=== PATIENT | male | born 1945 | race Caucasian/White ===

== ENCOUNTER 2017-03-05 18:04 | Inpatient (IN) | payer MEDICAID ==
[~2017-03-05] VITALS: Ht 157.5 cm; Wt 50.0 kg
--- NOTE | 2017-03-05 18:22 | NUR ---
PT BIB FAMILY C/C COUGH BODY ACHES STS ITCHING ALL OVER BODY X [address] [place] AT BEDSIDE TO [facility]
--- NOTE | 2017-03-05 18:31 | NUR ---
XRAY AT BEDSIDE
--- NOTE | 2017-03-05 18:45 | NUR ---
PLEASE ENTER FULL NAMES OF REIMBURSEMENT SPEC/RN Patient data collected by (REIMBURSEMENT SPEC): Dinorah MURILLO Assessment reviewed and completed by (RN): Toyin VILLAVICENCIO
[2017-03-05 18:58] LABS: BASOPHIL % 0.3 % (0-2)
[2017-03-05 18:59] LABS: PLATELET COUNT 494 x10^3mcL (130-400); RED CELL DISTRIBUTION WIDTH 17.8 % (11.5-14.5)
--- NOTE | 2017-03-05 19:05 | NUR ---
REPORT RECEIVED FROM OSMIN MOORE TO ASSUME CARE.
[2017-03-05 19:06] LABS: CALCIUM 7.4 mg/dL (8.5-10.1); CARBON DIOXIDE 26.9 mmol/L (21-32); CHLORIDE SERUM 103 mmol/L (98-107); CREATININE SERUM 1.2 mg/dL (0.7-1.3); GLUCOSE SERUM 112 mg/dL (74-106); SODIUM SERUM 136 mmol/L (136-145)
[2017-03-05 19:11] LABS: ALBUMIN 2.2 g/dL (3.4-5.0); ALKALINE PHOSPHATASE 131 U/L (46-116); ALT/SGPT 30 U/L (16-63); AST/SGOT 30 U/L (15-37); BILIRUBIN TOTAL 0.4 mg/dL (0.20-1.00); TOTAL PROTEIN, SERUM 7.1 g/dL (6.4-8.2)
--- NOTE | 2017-03-05 19:23 | NUR ---
PT MEDICATED PER MD ORDER. SEE EMAR. IVF BOLUS STARTED. PT IS [id number], NOT ORIENTED TO TIME. RESP E/U AND NO S/S OF DISTRESS NOTED. AT BEDSIDE.
--- NOTE | 2017-03-05 19:51 | NUR ---
PT UNABLE TO GIVE URINE AT THIS TIME.
[2017-03-05 20:39] LABS: microscopic required? YES; urine erythrocyte 3+ (NEGATIVE)
--- NOTE | 2017-03-05 21:16 | NUR ---
PT MEDICATED PER MD ORDER. SEE EMAR.
--- NOTE | 2017-03-05 21:26 | NUR ---
RESP E/U AND NO S/S OF DISTRESS NOTED. PT RESTING ON GURNEY.
--- NOTE | 2017-03-05 22:40 | NUR ---
PT MEDICATED PER MD ORDER. SEE EMAR.
--- NOTE | 2017-03-05 22:46 | NUR ---
PT MEDICATED PER MD ORDER. SEE EMAR.
--- NOTE | 2017-03-05 22:46 | NUR ---
REPORT CALLED TO TRISTAN GARCIA TO ASSUME CARE.
--- NOTE | 2017-03-05 22:47 | NUR ---
PT TAKEN TO CT.
--- NOTE | 2017-03-05 23:24 | NUR ---
PT TRANSFERRED ON FULL CM TO TELE UNIT IN NO ACUTE DISTRESS WITH EMT. REPORT GIVEN TO TRISTAN GARCIA TO ASSUME CARE.
[2017-03-05 23:41] VITALS: BP 149/75
--- NOTE | 2017-03-05 23:51 | NUR ---
RECEIVED PATIENT FROM ED VIA [facility]ER[facility], PATIENT ALERT AND ORIENTED, FORGETFUL AT TIMES, FAMILY MEMBER AT BEDSIDE, TELE #22 ST, IV ACCESS TO LAC WNL, NO C/O PAIN AT THIS TIME, SCABS TO SKIN NOTED TO ALL EXTREMITES, ORIENTED PATIENT TO ROOM AND SURROUNDINGS, BED IN LOW POSITION, BED RAILS UP X 2, CALL LIGHT WITHIN REACH, WILL ENDORSE CARE TO PRIMARY NURSE RADHA HUDSON
--- NOTE | 2017-03-06 | NUR ---
PT RESTING IN BED W/ NIECE AT BEDSIDE. PT SCRATCHING VIGOROUSLY. IV INFUSING NS @ 126ML/HR TO LAC. NO REDNESS, SWELLING OR PAIN NOTED. RESP EVEN AND UNLABORED ON RA. PT DENIES SOB AT THIS TIME. BILAT UPPER/LOWER EXTREMITIES COVERED IN SMALL PATCHES, NONDRAINING. PT REPORTS THEY DO NOT BLEED, PT DENIES OTHER RESIDENTS LIVING IN HIS HOME HAVING SIMILAR RASH. NIECE REPORTS HAVING TAPERED HIM OFF ALCOHOL SINCE THE PAST WEEK AND A HALF, REPORTS GIVING HIM A SHOT OF ESTEPHANIE TO CALM THE SHAKING DOWN X2 DURING THE DAY. PT DENIES HX OF SEIZURE, PT REPORTS BEING HUNGRY, WILL PROVIDE SOFT FOOD D/T PT HAS NO TEETH ON TOP. CALL LIGHT WITHIN REACH, BED IN LOWEST POSITION, WILL CONTINUE TO MONITOR.
[2017-03-06 03:10] VITALS: BP 178/68
[2017-03-06 04:10] LABS: AMPHETAMINE QUAL UR NONE DETECTED (NEG <=1000)
--- NOTE | 2017-03-06 05:15 | NUR ---
PT RESTING WELL IN BED W/ NIECE AT BEDSIDE. PT GIVEN BENADRYL IVP 25MG TO REDUCE ITCHING. PT HAS DIFFUSE SCABS ALL OVER BILAT UE/LE OF UNKNOWN SOURCE. PT CALM AND COOPERATIVE W/ CARE, GENERALIZED WEAKNESS, IV SITE TO RT HAND 126ML/HR. NO REDNESS, SWELLING OR PAIN NOTED. CALL LIGHT WITHIN REACH, BED IN LOWEST POSITION, WILL CONTINUE TO MONITOR.
[2017-03-06 05:49] VITALS: BP 119/61
[2017-03-06 07:29] VITALS: Ht 157.5 cm; Wt 50.0 kg
--- NOTE | 2017-03-06 07:35 | NUR ---
RECEIVED PATIENT ASLEEP IN BED; AROUSABLE, CONFUSED. DIDN'T FOLLOW COMANDS WELL. IV INTACT AND INFUSING TO LFA; RH IV SL NOTED. TELE # 22 NOTED. ALL EXTREMIES W/ DRIED SCAB NOTED. NIECE REMAIN AT BEDSIDE. POC EXPLAINED TO NIECE. CALL LIGHT WITHIN REACH.
[2017-03-06 07:42] LABS: MAGNESIUM 2.2 mg/dL (1.8-2.4); PHOSPHOROUS 2.6 mg/dL (2.5-4.9)
[2017-03-06 07:49] LABS: FREE T4 0.96 ng/dL (0.76-1.46); FREE THYROXINE INDEX 2.3 ug/dL (1.4-4.5); T4(THYROXINE) 5.8 ug/dL (4.7-13.3)
[2017-03-06 07:53] LABS: CHOLESTEROL/HDL RATIO 2.1
[2017-03-06 08:05] LABS: PLATELET COUNT 426 x10^3mcL (130-400); RED CELL DISTRIBUTION WIDTH 17.7 % (11.5-14.5)
[2017-03-06 08:28] LABS: CALCIUM 7.5 mg/dL (8.5-10.1); CARBON DIOXIDE 27.5 mmol/L (21-32); CHLORIDE SERUM 111 mmol/L (98-107); GLUCOSE SERUM 89 mg/dL (74-106); MAGNESIUM 2.2 mg/dL (1.8-2.4); POTASSIUM SERUM 3.5 mmol/L (3.5-5.1); SODIUM SERUM 142 mmol/L (136-145)
[2017-03-06 08:48] LABS: T3 TOTAL 0.84 ng/mL
[2017-03-06 09:54] VITALS: BP 119/61
[2017-03-06 10:05] VITALS: BP 137/83
--- NOTE | 2017-03-06 10:13 | NUR ---
PATIENT SAT UP IN BED NO DISTRESS NOTED, NIECE REMAIN AT BEDSIDE, ALL DUE MEDS GIVEN. INFORM DR. AILEEN ALDANA MEDS NOT AVAIL PER PHARMACY AND WILL BE AVAILABLE TOMORROW.
[2017-03-06 10:54] LABS: ATYPICAL LYMPH 1 %; BAND NEUTROPHIL 0 % (0-10); BASOPHIL 0 % (0-2); MONOCYTE 9 % (0-7); SEGMENTED NEUTROPHILS 54 % (37-75)
[2017-03-06 10:56] LABS: ovalocyte/elliptocyte 1+; rbc morphology (normal/abnorm) ABNORMAL (NORMAL); schistocyte (helmet cell) 1+
[2017-03-06 10:57] LABS: PLATELET MORPHOLOGY PLATELETS NORMAL
--- NOTE | 2017-03-06 12:35 | NUR ---
PATIENT ASLEEP AROUSED FOR MED; PATIENT VERY SLEEPY WILL ATTEMPT LATER; NIECE REMAIN AT BEDSIDE, LUNCH TRAY LEFT ON TABLE FOR LATER. CALL LIGHT WITHIN REACH.
[2017-03-06 14:00] VITALS: BP 132/73
[2017-03-06] MEDS ORDERED: FOL1 PO (14:16)
[2017-03-06] MEDS ORDERED: THERAGRAN-M1 TA4 PO (14:17)
[2017-03-06] MEDS ORDERED: THI100 PO (14:17)
--- NOTE | 2017-03-06 14:35 | NUR ---
PATIENT SAT UP AT SIDE OF BED NIECE ASSIST WITH HIS MEAL, DUE MEDS GIVEN. NEW IVF REPLACED. NIECE ASKING FOR MORE FOOD KITCHEN CLOSED. SANDWICH OFFERED. NEEDS ATTENDED. CONT TO MONITOR.
[2017-03-06] MEDS ORDERED: LEVAQUIN750 MG PO (14:43)
[2017-03-06] MEDS ORDERED: LIB25 PO (15:02)
--- NOTE | 2017-03-06 16:47 | NUR ---
PATIENT RESTING IN BED NO DISTRESS NOTED, INFORM NIECE TO LET PATIENT ELIMITE CREAM FOR SCABIES; RN AND DK STUDENT AT BEDSIDE APPLIED ELIMITE CREAM FROM HEAD TO TOES PRESCRIBED; INSTRUCT PATIENT NOT TO SHOWER UNTIL 12HRS. IV TO RH DC'D AND CATH INTACT; NO BLEEDING. CONT TO MONITOR
--- NOTE | 2017-03-06 17:14 | NUR ---
PATIENT RESTING IN BED NO COMPLAINT, DUE MEDS GIVEN, YELLOW CAB PHONE # GIVE TO NIBREANA PER REQUEST. NEEDS ANTICIPATED.
[2017-03-06 17:19] VITALS: BP 132/73
--- NOTE | 2017-03-06 17:40 | NUR ---
PATIENT RESTING IN BED; CHANDRIKA LARSEN AT BEDSIDE GIVE DISCHARGE INSTRUCTIONS AND PRESCRIPTION EXPLAINED WITH BHAVIK [place] TRANSLATE IN [place]. PATIENT TO F/U WITH DR. AREVALO ON 03/10/17. CHANDRIKA VERBALIZE UNDERSTAND PATIENT NEED TO TAKE MEDS PRESCRIBED. ALL QUESTIONS ANSWER.
--- NOTE | 2017-03-06 19:02 | NUR ---
LUCINA PAT WHEEL PATIENT OUT TO LOBBY WITH ALL BELONGINGS WITH NIECE AT THIS TIME.
--- NOTE | 2017-03-07 09:11 | NUR ---
ECHO NOT DONE PATINET DISCHARGED.
== END 2017-03-06 19:00 | disposition home or self-care (01) | DRG 775 ==
LOC: ED 18:04 → DU 21:52
PROVIDERS: Emergency Medicine; ADMIT Student in an Organized Health Care Education/Training Program
DX: F10.239 Alcohol dependence with withdrawal, unspecified (principal); E43 Unspecified severe protein-calorie malnutrition; E87.8 Other disorders of electrolyte and fluid balance, not elsewhere classified; D72.1 Eosinophilia; K72.90 Hepatic failure, unspecified without coma; D64.9 Anemia, unspecified; K86.1 Other chronic pancreatitis; K80.20 Calculus of gallbladder without cholecystitis without obstruction; R74.0 Nonspecific elevation of levels of transaminase and lactic acid dehydrogenase [LDH]; N20.0 Calculus of kidney; B86 Scabies; E87.6 Hypokalemia; Z59.0 Homelessness; Z68.20 Body mass index [BMI] 20.0-20.9, adult; F17.210 Nicotine dependence, cigarettes, uncomplicated
CPT/HCPCS: 83880; 84439; 87804; 94150; G0480; J0456; J0696; J1200; J2405; J3475; J3490; J7030; J7040; J7050; Q0092